=== PATIENT | female | born 1955 | race Caucasian/White ===

== ENCOUNTER 2022-12-01 11:00 | Outpatient (RCR) | payer MEDICARE, BC, SELFPAY ==
[2022-12-01 11:26] LABS: Creatinine* 0.5 mg/dL (0.5-1.5); Est. Creatinine Clearance* 50.47; Estimated Glomerular Filt Rate 104 ml/min
== END 2023-04-21 23:59 | disposition home or self-care (01) ==
LOC: CCIC 11:00
PROVIDERS: PCP Internal Medicine; Referring Provider Radiology Radiation Oncology; Visit Provider Radiology Radiation Oncology
DX: D44.7 Neoplasm of uncertain behavior of aortic body and other paraganglia (principal)
CPT/HCPCS: 36415; 36592; 82565; 99211